=== PATIENT | female | born 2005 | race Caucasian/White ===

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

== ENCOUNTER 2024-12-02 16:44 | Emergency (ER) | payer BC, MEDICAID ==
[~2024-12-02] VITALS: Ht 167.6 cm; Wt 55.5 kg
[2024-12-02 16:53] VITALS: BP 123/77; PULSE 99; O2SAT 99
[2024-12-02 18:09] VITALS: RESP 16
[2024-12-02] MEDS: ketorolac trometh 15mg/ml vial 15 MG/ML ML IM ONE (18:09)
--- NOTE | 2024-12-02 18:09 | Physician Documentation ---
History of Present Illness ~ Chief Complaint: Abdominal Pain Stated Complaint: ABDOMINAL PAIN Time Seen by MD: 17:13 Primary Medical Doctor: None HPI 19 y/o with painful periods and change in character. Presents today due to heavier menses with increased pain. Pt without PCP, remote control assembler or established care. Has been to UC several times for pain mangement of menses without follow up an dis frustrated. Medication Reconciliation Allergies: Coded Allergies: No Known Allergies (Unverified , 12/02/24) Past Medical History Past Medical History: No Pertinent History Past Surgical History: noncontributory Alcohol Use: None Drug Use: none Lives with: Family Lives In: Home Physical Exam Vital Signs: Temperature: 98.9, Source: Temporal, Heart Rate: 99, Respiratory Rate: 14, BP: 123/77, Pulse Oximetry: 99, Weight: 55.500 Oxygen Flow Rate: 0 Progress Results/Orders Results/Orders Orders - MARTIN OSULLIVAN PAC Urinalysis, Cult If Indicated (12/02/24 18:05) Ultrasound Pelvis W/Orwo Dplx (12/02/24 ) Completed Orders - MARTIN OSULLIVAN PAC Ketorolac Trometh 15mg/Ml Vial (Toradol (12/02/24 17:15) Cbc/Diff (12/02/24 18:05) CMP (12/02/24 18:05) Hcg Serum Ql (12/02/24 18:05) Ultrasound Pelvis W/Orwo Dplx (12/02/24 ) Medications Received in ER Medications (Trade) Dose Ordered Sig/Josue Route PRN Reason Start Time Stop Time Status Last Admin Dose Admin (Toradol injection) 60 mg ONCE ONCE IM 12/02/24 17:15 12/02/24 17:16 DC 12/02/24 18:09 30 MG Vital Signs 12/02/24 12/02/24 16:53 18:09 Temp 98.9 Pulse 99 Resp 14 16 B/P (MAP) 123/77 Pulse Ox 99 O2 Flow Rate 0 Laboratory Tests Test 12/02/24 18:14 White Blood Count 13.8 H Red Blood Count 4.54 Hemoglobin 12.9 Hematocrit 39.5 Mean Corpuscular Volume 87.1 Mean Corpuscular Hemoglobin 28.4 Mean Corpuscular Hemoglobin Concent 32.6 L Red Cell Distribution Width 13.6 Platelet Count 274 Mean Platelet Volume 9.7 Neutrophils (%) (Auto) 83.2 H Lymphocytes (%) (Auto) 11.6 L Monocytes (%) (Auto) 4.7 Eosinophils (%) (Auto) 0.3 Basophils (%) (Auto) 0.2 Neutrophils # (Auto) 11.5 H Lymphocytes # (Auto) 1.6 Monocytes # (Auto) 0.6 Eosinophils # (Auto) 0.0 Basophils # (Auto) 0.0 CBC Comment Sodium Level 143 Potassium Level 3.9 Chloride Level 108 H Carbon Dioxide Level 28.3 Anion Gap 7 L Blood Urea Nitrogen 11 Creatinine 0.82 Estimated GFR/1.73 m2 88 BUN/Creatinine Ratio 13.4 Glucose Level 91 Calcium Level 8.7 Total Bilirubin 0.9 Aspartate Amino Transf (AST/SGOT) 17 Alanine Aminotransferase (ALT/SGPT) 8 L Alkaline Phosphatase 63 Total Protein 7.4 Albumin 4.1 Globulin 3.3 Albumin/Globulin Ratio 1.2 Human Chorionic Gonadotropin, Qual Negative Chemistry Comments Medical Decision Making Additional Comment 19-year-old female with concerns of dysmenorrhea along with menorrhagia presents to the emergency department for evaluation. Ultrasound imaging and labs obtained and are all reassuring. She received Toradol 30 mg in the emergency department with near complete mitigation of her discomfort. No nausea or vomiting emergency department. Recommendations patient's establish care in the community and that she will begin NSAIDs for five days before her menses begin. Patient's safely discharged in the emergency department. Departure Disposition: 01 HOME / SELF CARE / HOMELESS Impression: Primary Impression: Dysmenorrhea Additional Impression: Menorrhagia Qualified Codes: N92.0 - Excessive and frequent menstruation with regular cycle Condition: Improved Discharge Instructions: Dysmenorrhea, [id number], Menorrhagia, [id number] Additional Instructions: Your ultrasound imaging, labs and response to Toradol injection or all reassuring. Please establish care with local primary care physician for additional follow up and consideration of inletter referral. Please consider beginning NSAIDs such as Motrin 4-5 days before beginning of her menses. Thank you for visiting emergency department of [facility]. Referrals: NO PRIMARY CARE PROVIDER (PCP) Education Educated: Patient, Family Educated regarding: diagnosis, treatment, prognosis Signature Scribe Signature: N/A Attestation: N/A MARTIN OSULLIVAN Dec 02, 2024 18:09 LUIZA CERVANTES MD Dec 02, 2024 18:21
[2024-12-02 18:46] LABS: MEAN PLATELET VOLUME 9.7 FL (7.4-10.4); RED CELL DISTRIBUTION WIDTH 13.6 % (11.5-14.5)
[2024-12-02 19:06] LABS: HCG SERUM QL NEGATIVE
[2024-12-02 19:08] LABS: CREATININE 0.82 MG/DL (0.40-0.90); TOTAL CARBON DIOXIDE 28.3 MMOL/L (24-32); eCRCL 95 ML/MIN; eGFR 88 ML/MIN
--- NOTE | 2024-12-02 19:14 | RADIOLOGY REPORT ---
ULTRASOUND OF THE PELVIS (NON-OB) FEMALE INDICATION: Dysmenorrhea and Menorrhagia COMPARISON: None TECHNIQUE AND FINDINGS: Transabdominal Ultrasound: Transabdominal ultrasound examination was performed. Endovaginal Ultrasound: Endovaginal ultrasound was declined. UTERUS: There is a copper IUD within the uterine canal. The uterus measures approximately 8.3 x 4.3 x 5.8 cm. cm. No focal uterine abnormality is seen. The endometrial stripe is 3 mm in thickness, within normal limits. RIGHT OVARY: The right ovary measures 3.2 x 2.3 x 2.6 cm. The right ovary is normal in appearance with expected Doppler flow. There is no evidence of abnormal adnexal mass. LEFT OVARY: The left ovary measures 2.8 x 1.7 x 1.6 cm. The left ovary is normal in appearance with expected Doppler flow. There is no evidence of abnormal adnexal mass. CUL de SAC: No evidence of pelvic free fluid or mass. IMPRESSION: IUD within the uterus. No gross abnormality. No evidence of ovarian torsion.
[2024-12-02 20:12] VITALS: TEMP 98.9
[2024-12-02 20:32] LABS: LEUKOCYTE ESTERASE ,URINE NEGATIVE (Neg); NITRITES, URINE NEGATIVE (Neg); OCCULT BLOOD,URINE MODERATE (Neg)
[2024-12-02 20:42] LABS: UA COLLECTION TYPE CLN CATCH MIDSTREAM
[2024-12-02 20:44] LABS: AMORPHOUS URATES 1+
[2024-12-02 20:45] LABS: MUCUS STRANDS FEW /LPF (Neg); SQUAMOUS EPITHELIAL CELL,UR MODERATE /LPF (FEW)
== END 2024-12-02 20:13 | disposition home or self-care (01) ==
LOC: ER 16:44
DX: N94.6 Dysmenorrhea, unspecified (principal); N92.0 Excessive and frequent menstruation with regular cycle
CPT/HCPCS: 36415; 76856; 80053; 81001; 84703; 85025; 93976; 96372; 99285; J1885